=== PATIENT | female | born 1990 | race Caucasian/White ===

== ENCOUNTER 2018-03-01 02:10 | Emergency (ER) | payer OTHER ==
[2018-03-01] MEDS ORDERED: LORazepam 2 MG/ML VIAL ONE (02:16)
[2018-03-01] MEDS ORDERED: NA CHLORIDE 0.9% 1,000 ML ONE (02:17)
[2018-03-01 02:30] LABS: Absolute Lymphocytes (CBC) 5.2 K/uL (0.7-4.9); Absolute Monocytes 0.5 K/uL (0.1-1.3); Absolute Neutrophil 3.8 K/uL (1.8-8.0); Basophils % 0.6 % (0-1.3); Eosinophils % 2.3 % (0-4.4); Hematocrit 39.2 % (36.0-45.0); Lymphocytes % 52.4 % (15.3-44.8); MCH 27.7 pg (27.0-35.0); MPV 7.9 fL (7.6-11.3); Monocytes % 5.6 % (3.3-12.3); RBC Red Blood Cell Count 4.66 M/uL (3.86-4.86)
[2018-03-01 02:34] LABS: Protime INR 1.07
[2018-03-01 02:43] LABS: Bicarbonate 19 mEq/L (21-31); Glucose Level 105 mg/dL (65-120); Potassium 3.1 mEq/L (3.6-5.0); Sodium Level 136 mEq/L (135-145)
[2018-03-01 02:49] LABS: ALT/SGPT 28 IU/L (10-60); AST/SGOT 39 IU/L (10-42); Albumin 4.4 g/dL (3.2-5.5); Alkaline Phosphatase 64 IU/L (42-121); BUN Blood Urea Nitrogen 14 mg/dL (6-20); Bilirubin Direct 0.1 mg/dL (0-0.2); Bilirubin Total 0.5 mg/dL (0.3-1.2); Creatine Phosphokinase 113 IU/L (22-269); Magnesium 2.1 mg/dL (1.8-2.5); Protein, Total 7.5 g/dL (6.0-8.3)
[2018-03-01] MEDS ORDERED: ONDANSETRON 4 MG/2 ML VIAL ONE (02:51)
[2018-03-01 02:52] LABS: CKMB Creatine Kinase MB 1.3 ng/ml (0.3-4.0)
[2018-03-01] MEDS ORDERED: POTASSIUM CL SA 10 MEQ TAB PO ONE (03:04)
--- NOTE | 2018-03-01 03:13 | ER ---
Nurse's Notes [facility] Name: Sharon Loo Age: 27 yrs Sex: Female : 1990 Arrival Date: 03/01/2018 Time: 02:13 Bed 6 Private MD: Diagnosis: Chest pain, unspecified;Anxiety disorder, unspecified;Dyspnea;Cystitis, unspecified;Hypokalemia Presentation: 03/01 02:10 Presenting complaint: Patient states: that she is not feeling well, is dizzy and fc shaking. Pt states that she did have a red bull at the beginning of the shift. Denies any pain. Transition of care: patient was not received from another setting of care. Onset of symptoms was March 01, 2018 at 02:00. Initial Sepsis Screen: Does the patient meet any 2 criteria? RR > 20 per min. HR > 90 bpm. Yes Does the patient have a suspected source of infection? No. Patient's initial sepsis screen is negative. Care prior to arrival: None. 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 - Social history:: Smoking status: Patient/guardian denies using tobacco, Patient/guardian denies using alcohol, street drugs. - Family history:: not pertinent. Screenin:17 Abuse screen: Denies threats or abuse. Nutritional screening: No deficits noted. fc Tuberculosis screening: No symptoms or risk factors identified. Fall Risk None identified. Assessment: 02:22 General: Appears uncomfortable, Behavior is cooperative, anxious. Pain: Complains of ak1 pain in heaviness in chest Pain began 30 min ago. Neuro: Level of Consciousness is awake, alert, obeys commands, Oriented to person, place, time, situation, Sock Lining Examiner are equal bilaterally Moves all extremities. Gait is unsteady, Speech is normal, Facial symmetry appears normal. Cardiovascular: Reports palpitations, shortness of breath, heaviness in her chest. Rhythm is sinus tachycardia. Respiratory: Reports shortness of breath at rest. GI: No signs and/or symptoms were reported involving the gastrointestinal system. : No signs and/or symptoms were reported regarding the genitourinary system. EENT: No signs and/or symptoms were reported regarding the EENT system. Derm: Skin is diaphoretic, Skin temperature is cool. Musculoskeletal: No signs and/or symptoms reported regarding the musculoskeletal system. 02:55 Reassessment: assisted pt to restroom via wheelchair. pt with steady gait in restroom. ak1 pt c/o heaviness to chest with nausea. ERP notified new verbal orders given. 03:16 Reassessment: pt tolerated ice water for PO challenge. ak1 Vital Signs: 02:10 BP 166 / 97; Pulse 127; Resp 18; Temp 98.0(O); Pulse Ox 100% on R/A; Weight 58.97 kg fc (R); Height 5 ft. 5 in. (165.10 cm) (R); Pain 0/10; 02:30 BP 129 / 96; Pulse 112; Resp 20; Pulse Ox 95% on R/A; ak1 02:30 Pulse 94; Resp 12; Pulse Ox 100% on 2 lpm NC; ak1 03:08 BP 119 / 82; Pulse 95; Resp 14; Pulse Ox 100% on 2 lpm NC; ak1 03:29 BP 137 / 86; Pulse 96; Resp 18; Temp 98; Pulse Ox 100% on R/A; Pain 3/10; ak1 02:10 Body Mass Index 21.63 (58.97 kg, 165.10 cm) ED Course: 02:10 Arm band placed on Patient placed in an exam room, in a wheelchair. fc 02:10 Patient has correct armband on for positive identification. Placed in gown. Bed in low fc position. Call light in reach. child monitor on. Pulse ox on. NIBP on. 02:10 No provider procedures requiring assistance completed. 02:13 Patient arrived in ED. buffy 02:13 Theo Mota MD is Attending Physician. buffy 02:15 Inserted saline lock: 20 gauge in right antecubital area, using aseptic technique. fc ,using aseptic technique. per Marleni MACKENZIE. 02:16 Triage completed. 02:21 Marleni Valdivia, AVRIL is Primary Nurse. ak1 02:22 XRAY Chest (1 view) Sent. ak1 02:25 X-ray completed. Portable x-ray completed in exam room. Patient tolerated procedure kw well. 02:26 XRAY Chest (1 view) In Process Unspecified. EDMS 03:29 IV discontinued, intact, bleeding controlled, No redness/swelling at site. Pressure ak1 dressing applied. Administered Medications: 02:21 Drug: NS 0.9% 1000 ml Route: IV; Rate: 1 bolus; Site: right antecubital; ak1 03:10 Follow up: IV Status: Completed infusion ak1 02:21 Drug: Ativan 0.5 mg Route: IVP; Site: right antecubital; ak1 02:56 Follow up: Response: No adverse reaction ak1 02:56 Drug: Zofran 4 mg Route: IVP; Site: right antecubital; ak1 03:09 Follow up: Response: Nausea is decreased ak1 03:07 Drug: Potassium Chloride 40 mEq {Note: ERP notified no liquid, verbal order for pills ak1 instead..} Route: PO; 03:10 Follow up: Response: No adverse reaction ak1 03:15 Drug: Ativan 0.5 mg Route: IVP; Site: right antecubital; ak1 03:31 Follow up: Response: No adverse reaction ak1 Point of Care Testing: Blood Glucose: 02:12 Blood Glucose: 88 mg/dL; fc Ranges: Outcome: 03:13 Discharge ordered by . buffy 03:16 Condition: stable ak1 03:30 Discharged to home via wheelchair, with family. ak1 03:30 Discharge instructions given to patient, Instructed on discharge instructions, follow up and referral plans. no drinking with medication, no driving heavy equipment, medication usage, safe sex practices, control, Demonstrated understanding of instructions, follow-up care, medications, Prescriptions given X 3. 03:37 Patient left the ED. ak1 Addendum: 03/04/2018 07:37 Addendum: Culture Results: Positive urine culture. No further action required. Bacteria i w sensitive to prescribed antibiotic. Signatures: Dispatcher [employer] EDPR Theo Mota MD MD cha Chretien, Felicia RN AVRIL Namrata Sandoval RN RN iw Whitley, Kimberlee kw Krenek, Amber, RN RN ak1
--- NOTE | 2018-03-01 03:14 | EDPHYS ---
Physician Documentation [facility] Name: Sharon Loo Age: 27 yrs Sex: Female : 1990 Arrival Date: 03/01/2018 Time: 02:13 Bed 6 Private MD: ED Physician Theo Mota HPI: 03/01 02:15 This 27 yrs old Female presents to ER via Unassigned with complaints of chest buffy pain and sob. 02:15 The patient has shortness of breath at rest, with light activity. Onset: The buffy symptoms/episode began/occurred just prior to arrival. Duration: The symptoms are continuous, and are steadily getting worse. The patient's shortness of breath has no apparent modifying factors. The patient or guardian reports chest pain that is located primarily in the anterior chest wall, bilaterally. The pain does not radiate. Associated signs and symptoms: The patient has no apparent associated signs or symptoms. Severity of symptoms: At their worst the symptoms were mild in the emergency department the symptoms are unchanged. Associated signs and symptoms: Pertinent positives: shortness of breath. The chest pain is described as aching. 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 - Social history:: Smoking status: Patient/guardian denies using tobacco, Patient/guardian denies using alcohol, street drugs. - Family history:: not pertinent. ROS: 02:15 Constitutional: Negative for fever, chills, and weight loss, Eyes: Negative for injury, buffy pain, redness, and discharge, ENT: Negative for injury, pain, and discharge, Neck: Negative for injury, pain, and swelling, Abdomen/GI: Negative for abdominal pain, nausea, vomiting, diarrhea, and constipation, Back: Negative for injury and pain, : Negative for injury, bleeding, discharge, and swelling, MS/Extremity: Negative for injury and deformity, Skin: Negative for injury, rash, and discoloration, Neuro: Negative for headache, weakness, numbness, tingling, and seizure, Psych: Negative for depression, anxiety, suicide ideation, homicidal ideation, and hallucinations, Allergy/Immunology: Negative for hives, rash, and allergies, Endocrine: Negative for neck swelling, polydipsia, polyuria, polyphagia, and marked weight changes, Hematologic/Lymphatic: Negative for swollen nodes, abnormal bleeding, and unusual bruising. 02:15 Cardiovascular: Positive for palpitations. 02:15 Respiratory: Positive for shortness of breath. Exam: 02:15 Constitutional: This is a well developed, well nourished patient who is awake, alert, buffy and in no acute distress. Head/Face: Normocephalic, atraumatic. Eyes: Pupils equal round and reactive to light, extra-ocular motions intact. Lids and lashes normal. Conjunctiva and sclera are non-icteric and not injected. Cornea within normal limits. Periorbital areas with no swelling, redness, or edema. ENT: Nares patent. No nasal discharge, no septal abnormalities noted. Tympanic membranes are normal and external auditory canals are clear. Oropharynx with no redness, swelling, or masses, exudates, or evidence of obstruction, uvula midline. Mucous membranes moist. Neck: Trachea midline, no thyromegaly or masses palpated, and no cervical lymphadenopathy. Supple, full range of motion without nuchal rigidity, or vertebral point tenderness. No Meningismus. Chest/axilla: Normal chest wall appearance and motion. Nontender with no deformity. No lesions are appreciated. Respiratory: Lungs have equal breath sounds bilaterally, clear to auscultation and percussion. No rales, rhonchi or wheezes noted. No increased work of breathing, no retractions or nasal flaring. Abdomen/GI: Soft, non-tender, with normal bowel sounds. No distension or tympany. No guarding or rebound. No evidence of tenderness throughout. Back: No spinal tenderness. No costovertebral tenderness. Full range of motion. Female : Normal external genitalia. Skin: Warm, dry with normal turgor. Normal color with no rashes, no lesions, and no evidence of cellulitis. MS/ Extremity: Pulses equal, no cyanosis. Neurovascular intact. Full, normal range of motion. Neuro: Awake and alert, GCS 15, oriented to person, place, time, and situation. Cranial nerves II-XII grossly intact. Motor strength 5/5 in all extremities. Sensory grossly intact. Cerebellar exam normal. Normal gait. Psych: Awake, alert, with orientation to person, place and time. Behavior, mood, and affect are within normal limits. 02:15 Cardiovascular: Rate: normal, Rhythm: regular, Pulses: Pulses are 4+ in bilateral radial, brachial, femoral, popliteal, posterior tibial and and dorsalis pedis arteries.. Heart sounds: normal, Edema: is not appreciated, JVD: is not appreciated. 02:15 Musculoskeletal/extremity: DVT Exam: No signs of deep vein thrombosis. no pain, no swelling, no tenderness, negative Homans' sign noted on exam, no appreciated bluish discoloration, no erythema, no increased warmth. Vital Signs: 02:10 BP 166 / 97; Pulse 127; Resp 18; Temp 98.0(O); Pulse Ox 100% on R/A; Weight 58.97 kg fc (R); Height 5 ft. 5 in. (165.10 cm) (R); Pain 0/10; 02:30 BP 129 / 96; Pulse 112; Resp 20; Pulse Ox 95% on R/A; ak1 02:30 Pulse 94; Resp 12; Pulse Ox 100% on 2 lpm NC; ak1 03:08 BP 119 / 82; Pulse 95; Resp 14; Pulse Ox 100% on 2 lpm NC; ak1 03:29 BP 137 / 86; Pulse 96; Resp 18; Temp 98; Pulse Ox 100% on R/A; Pain 3/10; ak1 02:10 Body Mass Index 21.63 (58.97 kg, 165.10 cm) MDM: 02:13 Patient medically screened. [facility] 02:19 Data reviewed: vital signs, nurses notes, lab test result(s), EKG, radiologic studies, buffy plain films. 03/01 02:15 Order name: Basic Metabolic Panel [facility] 03/01 02:15 Order name: BNP; Complete Time: 02:58 [facility] 03/01 02:15 Order name: CBC with Diff; Complete Time: 02:58 [facility] 03/01 02:15 Order name: Ckmb [facility] 03/01 02:15 Order name: CPK [facility] 03/01 02:15 Order name: LFT's [facility] 03/01 02:15 Order name: Magnesium [facility] 03/01 02:15 Order name: PT-INR; Complete Time: 02:58 [facility] 03/01 02:15 Order name: Ptt, Activated; Complete Time: 02:58 [facility] 03/01 02:15 Order name: Troponin (emerg Dept Use Only); Complete Time: 02:58 [facility] 03/01 02:15 Order name: D-Dimer; Complete Time: 02:58 [facility] 03/01 02:15 Order name: TSH [facility] 03/01 02:19 Order name: glucometer results - FOR PT WITH NO ID 03/01 02:19 Order name: Glucose, Ancillary Testing EDOH 03/01 02:15 Order name: Urine Test (obtain specimen); Complete Time: 02:55 [facility] 03/01 02:15 Order name: XRAY Chest (1 view) [facility] 03/01 02:15 Order name: EKG; Complete Time: 02:15 [facility] 03/01 02:15 Order name: Cardiac monitoring; Complete Time: 02:21 [facility] 03/01 02:15 Order name: EKG - Nurse/Tech; Complete Time: 02:21 [facility] 03/01 02:15 Order name: IV Saline Lock; Complete Time: 02:21 [facility] 03/01 02:15 Order name: Labs collected and sent; Complete Time: 02:22 [facility] 03/01 02:15 Order name: O2 Per Protocol; Complete Time: 02:22 [facility] 03/01 02:57 Order name: Urine Dipstick--Ancillary (enter results) [facility] 03/01 02:57 Order name: Urine --Ancillary (enter results) [facility] 03/01 03:13 Order name: Urine Culture [facility] 03/01 02:15 Order name: O2 Sat Monitoring; Complete Time: 02:22 [facility] 03/01 02:15 Order name: Urine Dipstick-Ancillary (obtain specimen); Complete Time: 02:55 [facility] 03/01 03:15 Order name: PO challenge: juice; Complete Time: 03:16 [facility] Administered Medications: 02:21 Drug: NS 0.9% 1000 ml Route: IV; Rate: 1 bolus; Site: right antecubital; ak1 03:10 Follow up: IV Status: Completed infusion ak1 02:21 Drug: Ativan 0.5 mg Route: IVP; Site: right antecubital; ak1 02:56 Follow up: Response: No adverse reaction ak1 02:56 Drug: Zofran 4 mg Route: IVP; Site: right antecubital; ak1 03:09 Follow up: Response: Nausea is decreased ak1 03:07 Drug: Potassium Chloride 40 mEq {Note: ERP notified no liquid, verbal order for pills ak1 instead..} Route: PO; 03:10 Follow up: Response: No adverse reaction ak1 03:15 Drug: Ativan 0.5 mg Route: IVP; Site: right antecubital; ak1 03:31 Follow up: Response: No adverse reaction ak1 Point of Care Testing: Blood Glucose: 02:12 Blood Glucose: 88 mg/dL; fc Ranges: Critical Glucose Levels:Adult <50 mg/dl or >400 mg/dl <40 mg/dl or >180 mg/dl Disposition: 03/01/18 03:13 Discharged to Home. Impression: Chest pain, unspecified, Anxiety disorder, unspecified, Dyspnea, Cystitis, unspecified, Hypokalemia. - Condition is Stable. - Discharge Instructions: Panic Attacks, Nonspecific Chest Pain, Potassium Content of Foods, Nonspecific Chest Pain, [id number], Aspirin and Your Heart, Hypokalemia. - Prescriptions for Pepcid 20 mg Oral Tablet - take 1 tablet by ORAL route every 12 hours for 10 days; 20 tablet. Xanax 0.5 mg Oral Tablet - take 1 tablet by ORAL route every 8 hours As needed; 20 tablet. Cipro 250 mg Oral Tablet - take 1 tablet by ORAL route every 12 hours; 10 tablet. - Medication Reconciliation Form, Thank You Letter, Antibiotic Education, Prescription Opioid Use form. - Follow up: Private Physician; When: 2 - 3 days; Reason: Recheck today's complaints, Continuance of care, Re-evaluation by your physician. - Problem is new. - Symptoms have improved. Signatures: Dispatcher [employer] Theo Mendieta MD MD cha Chretien, Felicia, RN RN Marleni Hernandez RN RN ak1
[2018-03-01 03:22] LABS: Thyroid Stimulating Hormone 0.57 uIU/mL (0.34-5.60)
[2018-03-01 03:41] LABS: Urine Blood TRACE (NEG); Urine Glucose NEGATIVE (NEG); Urine Protein NEGATIVE (NEG); Urine Specific Gravity 1.015 (1.005-1.030)
--- NOTE | 2018-03-01 08:58 | RAD REPORT ---
EXAM DESCRIPTION: RAD - Chest Single View - 03/01/2018 2:27 am CLINICAL HISTORY: Chest pain. COMPARISON: 07/26/2017 FINDINGS: Portable technique limits examination quality. The lungs are grossly clear. The heart is normal in size. No displaced fractures. IMPRESSION: No acute intrathoracic process suspected.
--- NOTE | 2018-03-01 15:41 | EKG ---
Test Date: 2018-03-01 Test Time: 02:11:04 Yard Attendant: OLENA MEASUREMENT RESULTS: Intervals: Rate: 82 WV: 162 QRSD: 86 QT: 376 QTc: 439 [place]: P: 67 WV: 162 QRS: 39 T: 36 INTERPRETIVE STATEMENTS: Normal sinus rhythm Normal ECG Compared to ECG 07/26/2017 10:49:12 No significant changes Electronically Signed On 03-01-18 15:37:51 CDT by Jose Bello
== END 2018-03-01 03:37 | disposition home or self-care (01) ==
LOC: ER 02:10
DX: F41.9 Anxiety disorder, unspecified (principal); R06.00 Dyspnea, unspecified; N30.90 Cystitis, unspecified without hematuria; E87.6 Hypokalemia
CPT/HCPCS: 36415; 71045; 80048; 80076; 81003; 81025; 82550; 82553; 82962; 83735; 83880; 84443; 84484; 85025; 85379; 85610; 85730; 87077; 87086; 87088; 87186; 93005; 96361; 96374; 96375; 99284; J2405; J7030

== ENCOUNTER 2018-04-03 03:40 | Emergency (ER) | payer OTHER ==
[2018-04-03 04:15] LABS: Urine Blood NEGATIVE (NEG); Urine Glucose NEGATIVE (NEG); Urine Protein NEGATIVE (NEG)
[2018-04-03 04:18] LABS: Absolute Lymphocytes (CBC) 2.2 K/uL (0.7-4.9); Absolute Monocytes 0.4 K/uL (0.1-1.3); Absolute Neutrophil 3.5 K/uL (1.8-8.0); Basophils % 0.5 % (0-1.3); Eosinophils % 2.1 % (0-4.4); Hematocrit 38.2 % (36.0-45.0); Lymphocytes % 34.8 % (15.3-44.8); MCH 28.1 pg (27.0-35.0); MCV 85.7 fL (80-100); Monocytes % 6.6 % (3.3-12.3); RBC Red Blood Cell Count 4.46 M/uL (3.86-4.86)
[2018-04-03 04:32] LABS: Bicarbonate 25 mEq/L (21-31); Glucose Level 95 mg/dL (65-120); Potassium 3.9 mEq/L (3.6-5.0); Sodium Level 136 mEq/L (135-145)
[2018-04-03 04:33] LABS: BUN Blood Urea Nitrogen 11 mg/dL (6-20)
[2018-04-03] MEDS ORDERED: ONDANSETRON 4 MG/2 ML VIAL ONE (05:55)
[2018-04-03] MEDS ORDERED: NA CHLORIDE 0.9% 1,000 ML ONE (05:55)
[2018-04-03] MEDS ORDERED: MORPHINE 4 MG/ML SYR ONE (05:55)
--- NOTE | 2018-04-03 09:44 | EDPHYS ---
Physician Documentation [facility] Name: Sharon Loo Age: 27 yrs Sex: Female : 1990 Arrival Date: 04/03/2018 Time: 03:45 Bed 13 Private MD: ED Physician Bowen Humphries HPI: 04/03 05:09 This 27 yrs old Female presents to ER via Ambulatory with complaints of kdr spotting and low abdominal pain - 6 weeks . 05:09 The patient presents to the emergency department with possible uterine contractions, kdr yesterday, abdominal pain, of the right lower quadrant and left lower quadrant, vaginal bleeding, described as spotting, spotting on Monday and then cramps in the last 24 horus. The estimated gestational age is 6 weeks. course: care: none, Leakage of Fluid: none appreciated, Ultrasound: the patient has not had an ultrasound, Risk/complications: no obvious risks or complications are appreciated. Previous pregnancies: the patient has never been . Associated signs and symptoms: The patient has no apparent associated signs or symptoms. The patient has not experienced similar symptoms in the past. The patient has not recently seen a physician. 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 - Social history:: Smoking status: Patient/guardian denies using tobacco. - Ebola Screening: : No symptoms or risks identified at this time. ROS: 05:09 Constitutional: Negative for fever, chills, and weight loss, Eyes: Negative for injury, kdr pain, redness, and discharge, Neck: Negative for injury, pain, and swelling, Cardiovascular: Negative for chest pain, palpitations, and edema, Respiratory: Negative for shortness of breath, cough, wheezing, and pleuritic chest pain, Back: Negative for injury and pain, : Negative for injury, discharge, and swelling - she did have brief spotting on Monday MS/Extremity: Negative for injury and deformity, Skin: Negative for injury, rash, and discoloration, Neuro: Negative for headache, weakness, numbness, tingling, and seizure activity. Psych: Negative for depression, anxiety, suicide ideation, homicidal ideation, and hallucinations, Allergy/Immunology: Negative for hives, rash, and allergies, Endocrine: Negative for neck swelling, polydipsia, polyuria, polyphagia, and marked weight changes, Hematologic/Lymphatic: Negative for swollen nodes, abnormal bleeding, and unusual bruising. 05:09 Abdomen/GI: Positive for abdominal pain, Negative for vomiting, abdominal cramps, abdominal distension, anorexia, dysphagia, hematemesis, black/tarry stool, rectal pain, rectal bleeding, bowel incontinence. Exam: 05:09 Constitutional: This is a well developed, well nourished patient who is awake, alert, kdr and in no acute distress. Head/Face: Normocephalic, atraumatic. Eyes: Pupils equal round and reactive to light, extra-ocular motions intact. Lids and lashes normal. Conjunctiva and sclera are non-icteric and not injected. Cornea within normal limits. Periorbital areas with no swelling, redness, or edema. Neck: Trachea midline, no thyromegaly or masses palpated, and no cervical lymphadenopathy. Supple, full range of motion without nuchal rigidity, or vertebral point tenderness. No Meningismus. Chest/axilla: Normal chest wall appearance and motion. Nontender with no deformity. No lesions are appreciated. Cardiovascular: Regular rate and rhythm with a normal S1 and S2. No gallops, murmurs, or rubs. Normal PMI, no JVD. No pulse deficits. Respiratory: Lungs have equal breath sounds bilaterally, clear to auscultation and percussion. No rales, rhonchi or wheezes noted. No increased work of breathing, no retractions or nasal flaring. Back: No spinal tenderness. No costovertebral tenderness. Full range of motion. Skin: Warm, dry with normal turgor. Normal color with no rashes, no lesions, and no evidence of cellulitis. MS/ Extremity: Pulses equal, no cyanosis. Neurovascular intact. Full, normal range of motion. Neuro: Awake and alert, GCS 15, oriented to person, place, time, and situation. Cranial nerves II-XII grossly intact. Motor strength 5/5 in all extremities. Sensory grossly intact. Cerebellar exam normal. Normal gait. Psych: Awake, alert, with orientation to person, place and time. Behavior, mood, and affect are within normal limits. 05:09 Abdomen/GI: Inspection: abdomen appears normal, Bowel sounds: active, all quadrants, Palpation: soft, mild abdominal tenderness, in the suprapubic area, right lower quadrant and left lower quadrant, mass, is not appreciated, rebound tenderness, is not appreciated, voluntary guarding, is not appreciated, involuntary guarding, is not appreciated. Vital Signs: 03:52 BP 135 / 93; Pulse 81; Resp 16; Temp 98.6(O); Pulse Ox 100% on R/A; Weight 58.97 kg ak1 (R); Height 5 ft. 5 in. (165.10 cm) (R); Pain 5/10; 04:22 BP 121 / 81; Pulse 76; Resp 16; Pulse Ox 100% on R/A; ak1 04:44 BP 126 / 85; Pulse 81; Pulse Ox 100% on R/A; ak1 05:48 BP 117 / 77; Pulse 77; Resp 16; Pulse Ox 100% on R/A; ak1 06:31 BP 126 / 80; Pulse 67; Resp 16; Temp 98.7(O); Pulse Ox 100% on R/A; Pain 0/10; ak1 07:24 BP 126 / 82; Pulse 79; Resp 17; Pulse Ox 100% on R/A; rb1 08:24 BP 114 / 71; Pulse 79; Resp 16; Pulse Ox 100% on R/A; Pain 0/10; rb1 09:20 BP 119 / 64; Pulse 77; Resp 17; Pulse Ox 100% on R/A; rb1 03:52 Body Mass Index 21.63 (58.97 kg, 165.10 cm) ak1 MDM: 05:09 Data reviewed: vital signs, nurses notes, lab test result(s), radiologic studies. kdr Counseling: I had a detailed discussion with the patient and/or guardian regarding: the historical points, exam findings, and any diagnostic results supporting the discharge/admit diagnosis, lab results, radiology results. 06:28 Patient medically screened. snw 04/03 03:56 Order name: Quantitative Hcg ak1 04/03 03:56 Order name: Abo/rh Typing ak1 04/03 03:56 Order name: Basic Metabolic Panel ak1 04/03 03:56 Order name: CBC with Diff ak1 04/03 03:56 Order name: HCG, Quantitative; Complete Time: 05:44 EDMS 04/03 03:56 Order name: ABO/RH typing; Complete Time: 05:09 EDMS 04/03 03:56 Order name: Basic Metabolic Panel; Complete Time: 05:44 EDMS 04/03 03:56 Order name: CBC with Automated Diff EDMS 04/03 03:57 Order name: Urine Dipstick--Ancillary (enter results); Complete Time: 05:09 ak1 04/03 03:57 Order name: Urine --Ancillary (enter results); Complete Time: 05:09 ak1 04/03 05:45 Order name: US Transvaginal Ob kdr 04/03 03:56 Order name: Urine Test (obtain specimen); Complete Time: 03:56 ak1 04/03 03:56 Order name: IV Saline Lock; Complete Time: 03:56 ak1 04/03 03:56 Order name: Labs collected and sent; Complete Time: 03:56 ak1 04/03 03:56 Order name: NPO; Complete Time: 03:56 ak1 04/03 03:56 Order name: Urine Dipstick-Ancillary (obtain specimen); Complete Time: 03:56 ak1 Administered Medications: 06:08 Drug: morphine 4 mg Route: IVP; Site: right antecubital; ak1 07:00 Follow up: Response: No adverse reaction; Pain is decreased rb1 06:08 Drug: Zofran 4 mg Route: IVP; Site: right antecubital; ak1 07:00 Follow up: Response: No adverse reaction; Nausea is decreased rb1 06:08 Drug: NS 0.9% 1000 ml Route: IV; Rate: 1 bolus; Site: right antecubital; ak1 07:00 Follow up: IV Status: Completed infusion rb1 Point of Care Testing: Urine : 03:52 hCG Reading: Positive; Control Reading: Positive; ak1 Disposition: 04/03/18 09:43 Discharged to Home. Impression: Threatened . - Condition is Stable. - Discharge Instructions: Medicines During , Threatened Miscarriage, First Trimester of , Pelvic Rest. - Prescriptions for Vitamin 27- 0.8 mg Oral Tablet - take 1 tablet by ORAL route once daily; 60 tablet. - Medication Reconciliation Form, Thank You Letter, Antibiotic Education, Prescription Opioid Use, Work release form form. - Follow up: Private Physician; When: 2 - 3 days; Reason: Recheck today's complaints, Continuance of care, Re-evaluation by your physician. Follow up: Emergency Department; When: As needed; Reason: Worsening of condition. Signatures: Dispatcher [employer] EDMS Bowen Humphries MD MD [facility] Krissy Luna, REGISTERED RADIOLOGIC TECHNOLOGIST-C REGISTERED RADIOLOGIC TECHNOLOGIST-Csnw Marleni Valdivia, RN RN ak1 Laura Rosado, RN RN rb1 Corrections: (The following items were deleted from the chart) 09:53 09:43 04/03/2018 09:43 Discharged to Home. Impression: Threatened . Condition rb1 is Stable. Forms are Work release form, Medication Reconciliation Form, Thank You Letter, Antibiotic Education, Prescription Opioid Use. Follow up: Private Physician; When: 2 - 3 days; Reason: Recheck today's complaints, Continuance of care, Re-evaluation by your physician. Follow up: Emergency Department; When: As needed; Reason: Worsening of condition. snw
--- NOTE | 2018-04-03 09:44 | ER ---
Nurse's Notes [facility] Name: Sharon Loo Age: 27 yrs Sex: Female : 1990 Arrival Date: 04/03/2018 Time: 03:45 Bed 13 Private MD: Diagnosis: Threatened Presentation: 04/03 03:49 Presenting complaint: Patient states: lower abd cramps since Monday last week. LMP ak1 02/21/18. 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 pt denies vaginal bleeding or discharge at this time. Transition of care: patient was not received from another setting of care. Onset of symptoms was March 28, 2018. Risk Assessment: Do you want to hurt yourself or someone else? Patient reports no desire to harm self or others. Initial Sepsis Screen: Does the patient meet any 2 criteria? No. Patient's initial sepsis screen is negative. Does the patient have a suspected source of infection? No. Patient's initial sepsis screen is negative. Care prior to arrival: None. 03:49 Method Of Arrival: Ambulatory ak1 03:49 Acuity: GIVOANNI 3 ak1 Triage Assessment: 03:52 General: Appears in no apparent distress. slender, well groomed, Behavior is calm, ak1 cooperative. Pain: Complains of pain in suprapubic area, right lower quadrant and left lower quadrant. EENT: No signs and/or symptoms were reported regarding the EENT system. Neuro: No deficits noted. Cardiovascular: No deficits noted. Respiratory: No deficits noted. GI: Abdomen is flat, Reports lower abdominal pain, cramping, nausea. : Denies vaginal bleeding. Derm: No signs and/or symptoms reported regarding the dermatologic system. Musculoskeletal: No signs and/or symptoms reported regarding the musculoskeletal system. 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 - Social history:: Smoking status: Patient/guardian denies using tobacco. - Ebola Screening: : No symptoms or risks identified at this time. Screenin:55 Abuse screen: Denies threats or abuse. Denies injuries from another. Nutritional ak1 screening: No deficits noted. Tuberculosis screening: No symptoms or risk factors identified. Fall Risk None identified. Assessment: 04:22 Reassessment: Patient appears in no apparent distress at this time. No changes from ak1 previously documented assessment. Patient is alert, oriented x 3, equal unlabored respirations, skin warm/dry/pink. see triage assessment. General: Appears in no apparent distress. 05:21 Reassessment: pt stated lower abd cramps continue to be intermittent at this time. ak1 05:47 Reassessment: pt updated with lab results and US to be done this morning. ak1 06:30 Reassessment: Patient appears in no apparent distress at this time. No changes from ak1 previously documented assessment. Patient is alert, oriented x 3, equal unlabored respirations, skin warm/dry/pink. Patient states symptoms have not improved. 07:00 General: Appears in no apparent distress. comfortable, Behavior is calm, cooperative. rb1 Pain: Denies pain. Neuro: Level of Consciousness is awake, alert, obeys commands, Oriented to person, place, time, situation. Cardiovascular: Capillary refill < 3 seconds is brisk in bilateral fingers. Respiratory: Airway is patent Respiratory effort is even, unlabored, Respiratory pattern is regular, symmetrical. Derm: Skin is pink, warm \\T\\ dry. Musculoskeletal: Range of motion: intact in all extremities. 08:00 Reassessment: Patient appears in no apparent distress at this time. Patient and/or rb1 family updated on plan of care and expected duration. Pain level reassessed. Patient is alert, oriented x 3, equal unlabored respirations, skin warm/dry/pink. Patient denies pain at this time. 09:00 Reassessment: Patient appears in no apparent distress at this time. No changes from rb1 previously documented assessment. 09:15 Reassessment: KATHIE Knott called US to see where the results were and asked if they rb1 could be read and resulted. Currently waiting for results. Pt. updated on POC. Vital Signs: 03:52 BP 135 / 93; Pulse 81; Resp 16; Temp 98.6(O); Pulse Ox 100% on R/A; Weight 58.97 kg ak1 (R); Height 5 ft. 5 in. (165.10 cm) (R); Pain 5/10; 04:22 BP 121 / 81; Pulse 76; Resp 16; Pulse Ox 100% on R/A; ak1 04:44 BP 126 / 85; Pulse 81; Pulse Ox 100% on R/A; ak1 05:48 BP 117 / 77; Pulse 77; Resp 16; Pulse Ox 100% on R/A; ak1 06:31 BP 126 / 80; Pulse 67; Resp 16; Temp 98.7(O); Pulse Ox 100% on R/A; Pain 0/10; ak1 07:24 BP 126 / 82; Pulse 79; Resp 17; Pulse Ox 100% on R/A; rb1 08:24 BP 114 / 71; Pulse 79; Resp 16; Pulse Ox 100% on R/A; Pain 0/10; rb1 09:20 BP 119 / 64; Pulse 77; Resp 17; Pulse Ox 100% on R/A; rb1 03:52 Body Mass Index 21.63 (58.97 kg, 165.10 cm) ak1 ED Course: 03:45 Patient arrived in ED. al2 03:47 Marleni Valdivia, RN is Primary Nurse. ak1 03:52 Triage completed. ak1 03:52 Arm band placed on Patient placed in an exam room, on a stretcher, on pulse oximetry, ak1 Patient notified of wait time. 03:54 Initial lab(s) drawn, by me, sent to lab. Urine collected: clean catch specimen, clear, ak1 Amount Voided: 100mL. Inserted saline lock: 20 gauge in right antecubital area, using aseptic technique. Blood collected. 03:55 Patient has correct armband on for positive identification. Placed in gown. Bed in low ak1 position. Call light in reach. Side rails up X 1. Pulse ox on. NIBP on. Door closed. Lights dimmed. Warm blanket given. 03:59 Bowen Humphries MD is Attending Physician. kdr 04:21 CBC with Diff Sent. ak1 04:21 Quantitative Hcg Sent. ak1 04:21 Abo/rh Typing Sent. ak1 04:21 Basic Metabolic Panel Sent. ak1 06:24 Krissy Luna FNP-C is PHCP. snw 07:23 US Transvaginal Ob In Process Unspecified. EDMS 09:51 No provider procedures requiring assistance completed. Pt. took own IV out. rb1 Administered Medications: 06:08 Drug: morphine 4 mg Route: IVP; Site: right antecubital; ak1 07:00 Follow up: Response: No adverse reaction; Pain is decreased rb1 06:08 Drug: Zofran 4 mg Route: IVP; Site: right antecubital; ak1 07:00 Follow up: Response: No adverse reaction; Nausea is decreased rb1 06:08 Drug: NS 0.9% 1000 ml Route: IV; Rate: 1 bolus; Site: right antecubital; ak1 07:00 Follow up: IV Status: Completed infusion rb1 Point of Care Testing: Urine : 03:52 hCG Reading: Positive; Control Reading: Positive; ak1 Outcome: 09:43 Discharge ordered by . snw 09:51 Discharged to home ambulatory, with friend. rb1 09:51 Condition: stable 09:51 Discharge instructions given to patient, Instructed on discharge instructions, follow up and referral plans. medication usage, Demonstrated understanding of instructions, follow-up care, medications, Prescriptions given X 1. 09:51 Patient left the ED. rb1 Signatures: Dispatcher [employer] EDVA Bowen Humphries MD MD kdr Therrien, Shelly, FNP-C ALUMNAE SECRETARY-Csnw Marleni Valdivia RN RN ak1 Laura Rosado, AVRIL RN rb1 Ara Jaramillo2 Corrections: (The following items were deleted from the chart) 09:54 09:53 Patient left the ED. rb1 rb1
--- NOTE | 2018-04-03 09:54 | RAD REPORT ---
EXAM DESCRIPTION: US - Transvaginal OB - 04/03/2018 7:24 am CLINICAL HISTORY: Abdominal pain, pelvic pain, cramping, history Preliminary findings were provided at the time of the study. COMPARISON: None. FINDINGS: Uterus is 8.7 x 4.2 x 5.8 cm. No myometrial mass identifiable. In the fundal portion of th e endometrial cavity there is a 6 week 0 day sized gestational sac with yolk sac. There does appear t o be a pole; however, this is too small to measure for age and heart rate is not detectable at this time. Within the uterus there is no hematoma or mass. Both ovaries are identified and show no suspicious finding. No adnexal mass to suspect concurrent ect opic . IMPRESSION: A 6 week 6 day sized gestational sac and yolk sac are identified in the fundal endometri al cavity. No hematoma, mass or other worrisome uterine finding. A definitive pole with cardiac activity is not yet identifiable, probably due to early age. Rep eat or follow-up sonography can be performed as warranted. No adnexal mass, cul-de-sac blood or other finding to suspect ectopic .
== END 2018-04-03 09:53 | disposition home or self-care (01) ==
LOC: EEVIPCON 03:40 → ER 03:40
DX: O20.0 Threatened abortion (principal); Z3A.01 Less than 8 weeks gestation of pregnancy
CPT/HCPCS: 36415; 76817; 80048; 81003; 81025; 84702; 85025; 86900; 86901; 96361; 96374; 96375; 99284; J2405; J7030